=== PATIENT | female | born 1970 | race Caucasian/White ===

== ENCOUNTER 2019-06-02 13:30 | Outpatient (CLI) | payer OTHER, SELFPAY ==
--- NOTE | ~2019-06-02 | US_ITS ---
EXAMINATION: US thyroid EXAM DATE: 06/02/2019 14:13 INDICATION: Nontoxic thyroid nodule. Right thyroidectomy. TECHNIQUE: Multiple grayscale and Doppler images of the thyroid were obtained (by a technologist who performed the scan) and subsequently reviewed. Individual nodules and recommendations may be reporte d in accordance with TI-RADS system as designated by the 2017 ACR White Paper TI-RADS committee. Comp arison is made to prior examination from 06/05/2018. FINDINGS: Right thyroidectomy bed is unremarkable. No regional lymphadenopathy. Small left thyroid lobe measuri ng 2.1 x 0.3 x 0.6 cm, without focal nodule identified or adjacent lymphadenopathy. IMPRESSION: 1. Unremarkable right thyroidectomy bed. Reviewed, dictated and finalized at location A.
== END 2019-06-02 13:31 | disposition home or self-care (01) ==
PROVIDERS: PCP Family Medicine Adolescent Medicine; Visit Provider Otolaryngology
DX: E04.1 Nontoxic single thyroid nodule (principal)
CPT/HCPCS: 76536

== ENCOUNTER 2021-02-08 01:20 | Day surgery (SDC) | payer OTHER, SELFPAY ==
[2021-01-24 14:19] VITALS: BMI 33.7
[2021-02-08 07:23] VITALS: BP 127/79; PULSE 77; RESP 16; TEMP 36.1; O2SAT 97; BMI 33.9
[2021-02-08] MEDS: LACTATED RINGERS 1,000 ML 150 ML IV CONT (07:34)
--- NOTE | 2021-02-08 07:57 | WPDANESEPPF ---
Anes - Initial Pre Proc Eval Procedure: Operation Date: 02/08/21 08:45 Proposed Procedures p Esophagogastroduodenoscopy & Screening Colonoscopy - Jonn Thao MD Date/Time: 02/08/21 07:57 Surgeon: Jonn Thao MD Pre Op Diagnosis: dysphagia, neoplasm Patient Data Age: 50 Gender: F Height: 1.65 m Weight: 92.5 kg Last Vital Signs Temp 36.1 C L 02/08/21 07:23 Pulse 77 02/08/21 07:23 Resp 16 02/08/21 07:23 BP 127/79 02/08/21 07:23 Pulse Ox 97 02/08/21 07:23 Allergies Allergy/AdvReac Type Severity Reaction Status Date / Time tetanus toxoid, adsorbed Allergy Unknown Abdominal Verified 02/08/21 07:22 Pain Home Medications Medication Instructions Recorded Confirmed Type estradiol 1 mg tablet 1 mg PO DAILY 01/11/21 02/08/21 History furosemide 20 mg tablet 20 mg PO QAM 01/11/21 02/08/21 History levothyroxine 88 mcg capsule 88 mcg PO DAILY 01/11/21 02/08/21 History pantoprazole 40 mg tablet,delayed 40 mg PO QAM 01/11/21 02/08/21 History release Patient hx anesthesia problems: none Family hx anesthesia problems: none Results Review: All pre-operative results and documents have been reviewed as part of the pre-operative evaluation. FOR[facility]LY [facility] Past Medical History Medical History (Updated 02/08/21 @ 07:57 by Jasbir Stahl MD) Hypothyroidism Obesity Surgical History Surgical History (Updated 02/08/21 @ 07:58 by Jasbir Stahl MD) History of cholecystectomy Family History Family History (Updated 01/11/21 @ 13:11 by Oliver Fang MA) Father Hypertension Mother Hypertension Social History Social History Years smoked: 10 Smoking status: Current every day smoker Tobacco type: cigarettes Alcohol intake: current Drinks per week: 2 Substance use type: does not use Living arrangements: with family Additional occupation/education comments: [employer] Gender identity (if verbalized by the patient): Female Spiritual care concerns: No Agree to blood products: Yes Anes - Eval Final PreProcedure Day of Procedure 02/08/21 07:57 Patient weight: obese Heart: regular rate and rhythm Lungs: clear to auscultation Airway: Mallampati scale class II Neurological: alert and oriented Last oral intake: >/= 8 hours ASA classification: II Emergent: no Anesthetic plan: proceed Anesthesia type and monitoring: general GIVS and standard monitoring Results Review: All pre-operative results and documents have been reviewed as part of the pre-operative evaluation. Informed Consent: The patient's anesthetic plan and its attendant risks and benefits were discussed with the patient/family/POA. Questions were solicited and answers provided to the satisfaction of the patient/family/POA.
--- NOTE | 2021-02-08 08:26 | WPDHPUPDATE1 ---
History and Physical Update Update Date/Time: 02/08/21 08:26 History and Physical has been reviewed, including an updated exam of the patient. There are NO changes in the patient's condition. Risks, benefits, and alternatives have been discussed and questions answered. Patient agrees to proceed with procedure.
--- NOTE | 2021-02-08 08:43 | SUR.OPER ---
EGD END AT 0839, COLON START AT 0843
[2021-02-08 08:55] VITALS: BP 107/66; PULSE 70; RESP 21; O2SAT 94
[2021-02-08 09:05] VITALS: BP 122/75; PULSE 71; RESP 14; O2SAT 98
[2021-02-08 09:15] VITALS: BP 114/67; PULSE 67; RESP 27; O2SAT 99
== END 2021-02-08 09:25 | disposition home or self-care (01) ==
PROVIDERS: PCP Family Medicine Adolescent Medicine; Visit Provider Internal Medicine Gastroenterology
PROC: 0DJ08ZZ Inspection of Upper Intestinal Tract, Via Natural or Artificial Opening Endoscopic (ICD-10-PCS; CPT 43235; principal; 2021-02-08 08:45)
DX: Z12.11 Encounter for screening for malignant neoplasm of colon (principal); R13.10 Dysphagia, unspecified; K29.70 Gastritis, unspecified, without bleeding; Z90.49 Acquired absence of other specified parts of digestive tract; K21.00 Gastro-esophageal reflux disease with esophagitis, without bleeding
CPT/HCPCS: 45378; 43248; 43239; 88305; 88342; J2704; J7120

== ENCOUNTER 2022-05-11 11:52 | Outpatient (CLI) | payer OTHER, SELFPAY ==
--- NOTE | ~2022-05-11 | DEXA_ITS ---
Bone Density Report Name: JAI SHARMA Age: 51 Sex: Female Ethnicity: White Date of : 1970 Indication: postmenopausal; screening for osteoporosis; hysterectomy; Referring Provider: JANELL ERICKSON Study: Bone densitometry was performed. Exam Date: May 11, 2022 Accession number: [id number] Bone Density: Region BMD T-score Z-score Classification AP Spine (L1-L4) 0.925 -1.1 -0.3 Osteopenia Femoral Neck (Left) 0.665 -1.7 -0.8 Osteopenia Total Hip (Left) 0.949 0.1 0.6 Normal Femoral Neck (Right) 0.706 -1.3 -0.5 Osteopenia Total Hip (Right) 0.912 -0.2 0.3 Normal Total Hip Mean 0.931 -0.1 0.5 Normal World Health Organization criteria for BMD impression classify patients as: Normal (T-score at or above -1.0), Osteopenia (T-score between -1.0 and -2.5), or Osteoporosis (T-score at or below -2.5). 10-year Fracture Risk(1): Major Osteoporotic Fracture 5.0% Hip Fracture 0.7% Reported Risk Factors: [place] (), Neck BMD=0.665, BMI=35.4, smoking (1) FRAX(R) Version 3.08. Fracture probability calculated for an untreated patient. Fracture probability may be lower if the patient has received treatment. Clinical Information Provided by Patient: Smokes Has used the following medications: HRT (i.e. estrogen/hormone therapy), thyroid medication Has the following medical conditions: Hysterectomy, RT thyroid removed Patient maximum height was 64.75 Menopause Age: 29 No regular weight bearing exercise Drinks caffeinated beverages Onset of menses at age 12 Number of children 2 Impression: The patient has low bone mass, based on the Left Femoral Neck T-score. The patient has an estimated ten-year risk of hip fracture of 0.7% and an estimated ten-year risk of major fracture of 5%, based on the WHO FRAX algorithm. The patient has risk factors, including: smoking. Discussion: BONE DENSITY IS LOW AT ONE OR MORE SKELETAL SITES. This patient's lowest T-score is low at one or more skeletal sites. It meets the World Health Organization's (WHO) criteria for ?low bone mass? (T-score between -1.0 and -2.5). The patient's 10-year risk of fracture as calculated by FRAX is less than the threshold where pharmacological therapy is recommended by the National Osteoporosis Foundation (NOF). However, all treatment decisions require clinical judgment and consideration of individual patient factors, including patient preferences, comorbidities, previous drug use, risk factors not captured in the FRAX model (e.g., frailty, falls, vitamin D deficiency, increased bone turnover, interval significant decline in bone density) and possible under or overestimation of fracture risk by FRAX. The patient should follow a healthful lifestyle (good nutrition with adequate calcium and vitamin D, and appropriate weight-beari
--- NOTE | ~2022-05-11 | MM_ITS ---
EXAMINATION: MM screening miguel BI w emeka HISTORY: Screening mammogram TECHNIQUE: Craniocaudal and mediolateral oblique 3-D tomosynthesis images were obtained and synthetic 2-D images were generated. CAD analysis was submitted and interpreted. COMPARISON: July 05, 2007 bilateral diagnostic mammogram BREAST PARENCHYMAL COMPOSITION: There are scattered areas of fibroglandular density. FINDINGS: New multiple bilateral breast masses since 07/04/2017. Bilateral diagnostic mammogram and bi lateral breast ultrasound examination are recommended. IMPRESSION: 1. New multiple bilateral breast masses 2. Bilateral diagnostic mammography and bilateral breast ultrasound examination are recommended BI-RADS Category 0: Incomplete: Needs additional imaging evaluation. Reviewed, dictated and finalized at location A. LOPMENT SCIENTIST
== END 2022-05-11 11:53 ==
PROVIDERS: PCP Family Medicine Adolescent Medicine; Visit Provider Physician Assistant
DX: Z12.31 Encounter for screening mammogram for malignant neoplasm of breast (principal); Z90.710 Acquired absence of both cervix and uterus; R92.8 Other abnormal and inconclusive findings on diagnostic imaging of breast; M85.88 Other specified disorders of bone density and structure, other site; M85.852 Other specified disorders of bone density and structure, left thigh; M85.851 Other specified disorders of bone density and structure, right thigh
CPT/HCPCS: 77063; 77067; 77080

== ENCOUNTER 2022-06-01 08:04 | Outpatient (CLI) | payer OTHER, SELFPAY ==
--- NOTE | ~2022-06-01 | MMUS_ITS ---
EXAMINATION: MM diagnostic miguel BI w emkea, US breast BI complete HISTORY: Multiple new bilateral breast masses on May 11, 2022 mammogram compared to July 04 mammogram TECHNIQUE: Additional 3-D tomosynthesis images of both breasts were performed and synthetic 2-D image s were generated. CAD analysis was submitted and interpreted. High resolution complete bilateral eric st ultrasound examination including all 4 quadrants and subareolar areas was performed. COMPARISON: May 11, 2022 and July 05, 2007 bilateral screening mammogram examinations FINDINGS: MAMMOGRAPHIC FINDINGS: There are multiple circumscribed breast masses, measuring up to 1.4 cm on the right, 9 mm on the left .. The circumscribed margins suggest benign process. No suspicious mass, architectural distortion, malignant calcification, skin thickening or retraction of either breast is detected. ULTRASOUND: Right breast: 2. Numerous to mention circumscribed sonolucent and hypoechoic lesions without internal vascularity o r suspicious shadowing scattered in the right breast. The largest of these is situated at subareolar area, measuring up to 1.3 x 1.9 cm, sonolucent, with through transmission and posterior enhancement. There is a lesion at 2:00 subareolar area that is up to approximately 4 x 9 mm, with multi lobular ou tline and minimal internal echogenicity but no suspicious shadowing. 6 month targeted ultrasound foll ow-up is recommended at this location. Left breast: There are multiple scattered circumscribed sonolucent and hypoechoic lesions, the largest in the suba reolar area, a sonolucent cyst measuring up to 7 x 8.7 mm.. At 3:00 subareolar area there is an approximately 5-6 mm hypoechoic area with marginal color flow sig nal but no posterior shadowing. 6 month follow-up ultrasound targeted to this area is recommended. IMPRESSION: 1. Bilateral probably benign sonographic findings 2. 6 month bilateral breast ultrasound follow-up is recommended with attention to right 2:00 subareol ar area and left 3:00 subareolar area BI-RADS category 3, probably benign findings. Reviewed, dictated and finalized at location A. IMPRESSION: 1. Bilateral probably benign sonographic findings 2. 6 month bilateral breast ultrasound follow-up is recommended with attention to right 2:00 subareolar area and left 3:00 subareolar area BI-RADS category 3, probably benign findings.
== END 2022-06-01 08:05 ==
LOC: MICIMG 08:06
PROVIDERS: PCP Family Medicine Adolescent Medicine; Visit Provider Family Medicine Adolescent Medicine
DX: R92.8 Other abnormal and inconclusive findings on diagnostic imaging of breast (principal)
CPT/HCPCS: 76641; 77062; 77066; G0279

== ENCOUNTER → 2022-12-01 07:50 | Outpatient (CLI) | payer OTHER, SELFPAY ==
--- NOTE | ~2022-12-01 | US_ITS ---
US breast BI limited DATE: 12/01/2022 08:41 INDICATION: Six-month follow-up of probably benign findings at right breast 2:00 subareolar area and left breast 3:00 subareolar TECHNIQUE: High resolution color flow imaging limited to right breast 2:00 subareolar and left breast 3:00 subareolar areas COMPARISON: 06/01/2022 bilateral diagnostic mammogram and bilateral complete breast ultrasound examina tion FINDINGS: Right breast 2:00 subareolar area: Stable parallel circumscribed approximately 4 x 9 mm hypoechoic so lid lesion with lobular outline, no posterior shadowing, unchanged since 06/01/2022 Left breast 3:00 subareolar area: Scattered subcentimeter cystic areas with through transmission post erior enhancement are noted. No suspicious mass or shadowing is detected. IMPRESSION: Probable benign findings Recommendation: 6 month diagnostic mammogram and Limited bilateral breast ultrasound follow-up with a ttention to right 2:00 subareolar area and left 3:00 subareolar area Reviewed, dictated and finalized at Location A. Reviewed, dictated and finalized at location A. IMPRESSION: Probable benign findings Recommendation: 6 month diagnostic mammogram and Limited bilateral breast ultra sound follow-up with attention to right 2:00 subareolar area and left 3:00 suba reolar area
== END ==
PROVIDERS: PCP Family Medicine Adolescent Medicine; Visit Provider Family Medicine Adolescent Medicine
DX: R92.8 Other abnormal and inconclusive findings on diagnostic imaging of breast (principal)
CPT/HCPCS: 76642

== ENCOUNTER 2023-06-04 08:13 | Outpatient (CLI) | payer OTHER, SELFPAY ==
--- NOTE | ~2023-06-04 | MMUS_ITS ---
EXAMINATION: MM diagnostic miguel BI w emeka, US breast BI complete HISTORY: Follow-up bilateral breast masses TECHNIQUE: Additional 3-D tomosynthesis images of the breasts were performed and synthetic 2-D images were generated. CAD analysis was submitted and interpreted. High resolution complete bilateral breas t ultrasound was performed. COMPARISON: Comparison to multiple prior studies sequentially, with oldest reviewed study dated 05/11. BREAST PARENCHYMAL COMPOSITION: Not dense: There are scattered areas of fibroglandular density. FINDINGS: MAMMOGRAPHIC FINDINGS: There are bilateral periareolar/subareolar breast masses, most of which have decreased in size compar ed with prior examination. ULTRASOUND: Complete bilateral US of all 4 quadrants of the breasts and retroareolar region was reviewed. Multipl e simple cysts of both breast corresponding to the mammographic findings. No evidence for malignancy. IMPRESSION: 1. No evidence for malignancy in either breast. Benign findings. 2. Routine yearly screening mammogram and regular clinical breast examination are recommended. BI-RADS Category 2: Benign finding(s). Reviewed, dictated and finalized at location A. IMPRESSION: 1. No evidence for malignancy in either breast. Benign findings. 2. Routine yearly screening mammogram and regular clinical breast examination a re recommended. BI-RADS Category 2: Benign finding(s).
== END 2023-06-04 08:14 ==
LOC: MICIMG 08:14
PROVIDERS: PCP Family Medicine Adolescent Medicine; Visit Provider Family Medicine Adolescent Medicine
DX: R92.8 Other abnormal and inconclusive findings on diagnostic imaging of breast (principal)
CPT/HCPCS: 76641; 77062; 77066; G0279